=== PATIENT | male | born 1975 | race African-American/Black ===

== ENCOUNTER 2018-04-10 22:57 | Emergency (ER) | payer MEDICAID ==
[~2018-04-10] VITALS: Ht 170.2 cm; Wt 62.1 kg
[2018-04-10 23:54] VITALS: BP 126/77
[2018-04-11 00:41] LABS: Basophils # (auto) 0 uL; Eosinophils # (auto) 0.2 uL; Hemoglobin 15.6 g/dL (13.5-17.5); Mean Corpuscular Hemoglobin 26.9 pg (28.0-32.0); Nucleated Red Blood Cells % 0.1 %
[2018-04-11 00:42] LABS: Basophils % (auto) 0.4 % (0.0-2.0); Eosinophils % (auto) 3.4 % (0.0-7.0); Hematocrit 47.2 % (41.0-53.0); Lymphocytes # (auto) 2.1 uL; Mean Corpuscular Hgb Conc. 33.1 g/dL (32.0-36.0); Mean Corpuscular Volume 81.4 fL (80.0-100.0); Monocytes # (auto) 0.6 uL; Monocytes % (auto) 8.2 % (0.0-12.0); Neutrophils # (auto) 4.2 uL; Platelet Count (auto) 191 10^3/uL (140-450); Red Cell Distribution Width 13.5 % (11.8-14.3); White Blood Cell 7.1 10^3/uL (4.4-10.8)
[2018-04-11 00:59] LABS: Albumin 3.7 g/dL (3.4-5.0); Anion Gap 7 (5-15); BUN/Creatinine Ratio 9.8; Blood Urea Nitrogen 10 mg/dL (7-18); Calcium 8.8 mg/dL (8.5-10.1); Carbon Dioxide 28 mmol/L (21-32); Chloride 100 mmol/L (98-107); GFR African American 103 mL/min; GFR Non-African American 85 mL/min; Glucose 98 mg/dL (74-106); Potassium 3.5 mmol/L (3.5-5.1); Sodium 135 mmol/L (136-145)
[2018-04-11 01:04] LABS: Alanine Aminotransferase 30 U/L (16-61); Alkaline Phosphatase 77 U/L (45-117); Aspartate Aminotransferase 25 U/L (15-37); Total Protein 7.5 g/dL (6.4-8.2)
[2018-04-11] MEDS ORDERED: KETOROLAC TROMETH 60MG/2ML VIAL IM ONE (08:15)
== END 2018-04-11 08:43 | disposition home or self-care (01) ==
LOC: ER 23:00
DX: R07.89 Other chest pain (principal); K13.79 Other lesions of oral mucosa; R11.2 Nausea with vomiting, unspecified; H92.01 Otalgia, right ear; R07.0 Pain in throat
CPT/HCPCS: 36415; 80053; 84484; 85025; 96372; 99284; J1885; 93005

== ENCOUNTER 2018-08-05 00:14 | Emergency (ER) | payer MEDICAID ==
[~2018-08-05] VITALS: Ht 170.2 cm; Wt 67.1 kg
[2018-08-05 00:32] VITALS: BP 188/104
[2018-08-05] MEDS ORDERED: cloNIDine HCL 0.1 MG TAB PO ONE (00:45)
[2018-08-05] MEDS ORDERED: KETOROLAC TROMETH 60MG/2ML VIAL IM ONE (03:15)
== END 2018-08-05 05:50 | disposition home or self-care (01) ==
LOC: ER 00:17
DX: K04.7 Periapical abscess without sinus (principal)
CPT/HCPCS: 96372; 99283; J1885

== ENCOUNTER 2020-08-24 09:56 | Emergency (ER) | payer MEDICAID ==
[~2020-08-24] VITALS: Ht 175.3 cm; Wt 79.4 kg
[2020-08-24 10:17] VITALS: BP 135/92
== END 2020-08-24 10:35 | disposition home or self-care (01) ==
LOC: ER 09:56
DX: K02.9 Dental caries, unspecified (principal)